=== PATIENT | female | born 1970 | race Caucasian/White ===

== ENCOUNTER 2016-06-24 09:36 | Observation (INO) | payer OTHER ==
[2016-06-20 09:38] VITALS: BMI 47.0
--- NOTE | 2016-06-20 10:03 | PAT Medication Instructions ---
Service Date Jun 20, 2016. Current Home Medication List Atorvastatin (Lipitor), 40 MG PO HS Buspirone Hcl (Buspirone Hcl), 10 MG PO BID Cholecalciferol (Vitamin D3), 2 TAB PO QAM Citalopram Hydrobromide (Celexa), 40 MG PO QPM Clonazepam (Klonopin), 0.5 MG PO QPM Ferrous Sulfate (Iron), 1 DOSE PO QAM Fish Oil ([place]-3), 1 CAP PO QAM Levothyroxine Sodium (Synthroid), 125 MCG PO QAM Melatonin (Melatonin Maximum Strengt), 1 TAB PO HS Meloxicam (Mobic), 15 MG PO HS Medication Instructions For Your Scheduled Surgery - Check with surgeon for instructions: Meloxicam (Mobic), 15 MG PO HS - Hold the following medications starting 06/21/15: Fish Oil ([place]-3), 1 CAP PO QAM - Hold the following medications the morning of surgery: Ferrous Sulfate (Iron), 1 DOSE PO QAM Cholecalciferol (Vitamin D3), 2 TAB PO QAM - Take the following medications the morning of surgery with a sip of water: Levothyroxine Sodium (Synthroid), 125 MCG PO QAM Buspirone Hcl (Buspirone Hcl), 10 MG PO BID - Take the following medications as scheduled the night before surgery: Melatonin (Melatonin Maximum Strengt), 1 TAB PO HS Clonazepam (Klonopin), 0.5 MG PO QPM Citalopram Hydrobromide (Celexa), 40 MG PO QPM Buspirone Hcl (Buspirone Hcl), 10 MG PO BID Atorvastatin (Lipitor), 40 MG PO HS If you have any questions please call us at [phone] Fay Coffman PA-C) or [phone] or [phone]
[2016-06-20 10:33] LABS: BASO % 0.4 %; BASO ABS # 0.02 K/uL (0-0.2); COMPLETE YES; EOS % 2.9 %; HEMATOCRIT 35.8 % (37-47); LYMPH % 32.1 %; LYMPH ABS # 1.44 K/uL (1.2-3.4); MEAN CELL VOLUME 95.7 fL (80-100); MEAN CORPUSCULAR HEMOGLOBIN 32.4 pg (25-34); MEAN CORPUSCULAR HGB CONC 33.8 g/dl (32-36); MEAN PLATELET VOLUME 9.3 fL (7.4-10.4); MONO % 7.3 %; NEUT % 57.3 %; PLATELET COUNT 285 K/uL (130-400); RED BLOOD COUNT 3.74 M/uL (4.2-5.4); WHITE BLOOD COUNT 4.49 K/uL (4.8-10.8)
[2016-06-20 10:54] LABS: BUN/CREATININE RATIO 13.3 (10-20); CALCIUM 8.1 mg/dl (8.5-10.1); CREATININE 0.82 mg/dl (0.60-1.20)
[~2016-06-24] VITALS: Ht 165.1 cm; Wt 129.1 kg
[2016-06-24] VITALS (7 sets, daily range): BP systolic 110–150; BP diastolic 70–85; PULSE 67–77; TEMP 36.8–37.2; O2SAT 91–98; Ht 165.1 cm; Wt 129.1 kg
[~2016-06-24 09:36] MED LIST: BUSP-8 PO; CEFAZOLIN 3000 MG/65 ML D5W 50 ML IV SCH; CHOL1000 PO; CITA40TA12 PO; CLON0.5T3 PO; FERR1TAB23 PO; LACTATED RINGER'S 1000ML 1,000 ML IV SCH; LEVO125T72 PO; LPT/40 PO; MELATAB2 PO; MELO15TA3 PO; OMEG10007 PO
[2016-06-24] MEDS ORDERED: LACTATED RINGER'S 1000ML 1,000 ML IV PRN (11:49)
[2016-06-24] MEDS ORDERED: MoRPHine SULFATE 10 MG/ML CARP/VIAL IV PRN (12:00)
[2016-06-24] MEDS ORDERED: FENTANYL CITRATE INJ 50 MCG/1 ML 2 ML VIAL IV PRN (12:00)
[2016-06-24] MEDS ORDERED: MIDAZOLAM HCL 1 MG/ML 2ML VIAL ONE (12:09)
[2016-06-24] MEDS ORDERED: FENTANYL CITRATE INJ 50 MCG/1 ML 2 ML VIAL ONE ×3 (12:09→14:26)
--- NOTE | 2016-06-24 12:18 | History & Physical Bridge Note ---
H&P Re-Evaluation Bridge Note: I have examined the patient, reviewed the History & Physical and in the interval since the performance of the History & Physical I have noted the following changes of clinical significance: No changes noted
[2016-06-24] MEDS ORDERED: ONDANSETRON INJ 2 MG/ML 2 ML VIAL ONE (13:22)
[2016-06-24] MEDS ORDERED: LIDOCAINE 2% 20 MG/ML 5ML SYR ONE (13:22)
[2016-06-24] MEDS ORDERED: LIDOCAINE HCL 2% 2 ML VIAL (20MG/ML) ONE (13:22)
[2016-06-24] MEDS ORDERED: ROCURONIUM BROMIDE 10 MG/ML 5 ML VIAL ONE (13:22)
[2016-06-24] MEDS ORDERED: PROPOFOL IV EMULSION 10 MG/ML 20 ML VIAL IV ONE (13:22)
[2016-06-24] MEDS ORDERED: DEXAMETHASONE SOD INJ 4 MG/ML VIAL ONE (13:22)
[2016-06-24] MEDS ORDERED: KETOROLAC TROMETHAMINE 30 MG/ML VIAL ONE (14:22)
[2016-06-24] MEDS ORDERED: BUPIVACAINE 0.5 % 5 MG/1 ML MPF 30ML VIAL INJ ONE (14:32)
[2016-06-24] MEDS ORDERED: LACTATED RINGER'S 1000ML 1,000 ML IV SCH (14:50)
--- NOTE | 2016-06-24 14:50 | [facility] Post Operative Brief Note ---
Immediate Operative Summary Operative Date Jun 24, 2016. Pre-Operative Diagnosis Abnormal uterine bleeding, anemia, obesity Post-Operative Diagnosis Same as preop. Procedure(s) Performed Total Laparoscopic Hysterectomy, Bilateral salpingectomies with use of Davinci, cystoscopy Surgeon Dr. Burgos [employer] Consultant Surgeon(s) None Estimated Blood Loss 50 ML Findings bulky uterus. nl ovaries bilaterally. evidence of hulka clips to bilateral fallopian tubes, 2 devices on each side. Mobile pelvic organs. redundant fat in pelvis. nl liver edge. Fluids (cc crystalloids) 1700 Specimens A: Uterus, cervix, bilateral tubes Drains gaitan Anesthesia general Complication(s) None Disposition Recovery Room / PACU
[2016-06-24] MEDS ORDERED: OXYC-57 PO (14:54)
[2016-06-24] MEDS ORDERED: MTR600X PO (14:54)
--- NOTE | 2016-06-24 14:55 | Discharge Instructions ---
Discharge Instructions Admission Reason for Admission: AUB Discharge Discharge Diagnosis / Problem: status post surgery Discharge Goals Goal(s): Routine recovery after surgery Activity Recommendations Activity Limitations: as noted below . Instructions / Follow-Up Instructions / Follow-Up POST OPERATIVE: BOWEL FUNCTION/MEDICATIONS: 1. Constipation pain and discomfort are the most common complaints 5-7 days after surgery. Points 2-6 address the things that can help. 2. Chewing gum can help stimulate the gut and help improve digestion and motility. 3. Milk of Magnesia 1-2 times per day until return of bowel function. 4. Colace is a stool softener that helps. Taking this 2-3 times per day until bowel function returns to normal is highly recommended. 5. Dulcolax is a laxative that may be used if several days have passed without a bowel movement. Alternatively Miralax may be used daily instead. 6. Drink plenty of fluids as this will also reduce constipation. 7. Narcotic pain medications will be prescribed by your physician. They are safe to use and we encourage you to use them. If you are not allergic, ibuprofen will also be prescribed. Many patients will be able to transition off of the narcotic medications to ibuprofen by postoperative day 3. ACTIVITY RECOMMENDATIONS: 1. Get plenty of rest and listen to your body. If you are tired, take a nap. 2. You may shower, but do not take a tub bath until you see your doctor at the 2 week post operative visit. 3. Absolutely NO intercourse and nothing in the vagina until you are examined by your doctor at the 8 week visit. At that visit it will be determined when such activities can be resumed. This can range from 6-12 weeks after your surgery depending on healing time. 4. The main physical activity in the first week should be walking. By the second week you can slowly increase activity. There are no limits on walking up and down stairs. 5. Do not lift more than 5-10 lbs for 4 weeks. Remember the "one-handed rule", i.e. if you can lift something with only one hand it's likely okay. 6. Minimize paying teller like vacuuming and exercising for 4 weeks. "Overdoing it" can lead to incisions not healing, pain and vaginal bleeding , so again, listen to your body. 7. Driving can be resumed when you feel able. Do not drive within 24 hours of taking a narcotic medication. EXPECTATIONS: 1. Vaginal spotting, bleeding and discharge are common after surgery. There may even be an odor to the discharge which is often related to sutures used in the vagina. If you experience heavy vaginal bleeding, call the office number day or night [phone]. 2. Bladder discomfort is common after surgery from the catheter. This usually resolves in 1-2 weeks. 3. By the end of the 3rd or 4th week you should be feeling much better. It may take up to 6 weeks for your energy levels to return to normal. 4. Narcotic medications have side effects such as: dizziness, headache, nausea and/or vomiting. If you suspect your pain medication is causing problems, call our office and we may be able to prescribe an alternate medication. 5. The skin incisions are often covered with a liquid bandage. This will gradually peel off over time. CALL THE OFFICE IF YOU HAVE ANY OF THE FOLLOWIN. Temperature of 101 degrees or higher. 2. Severe abdominal or pelvic pain not relieved by pain medication. 3. Persistent nausea or vomiting. 4. Increased pain with urination or difficulty urinating. 5. Bright red bleeding that soaks more than 1 pad per hour. CONTACT PHONE NUMBERS: Main Office: [phone] Surgical Nurse: [phone] extension [phone] FOLLOW-UP: Post-Operative Appointments: * Individual instructions will have been given about the timing of your first examination, but this is usually at the end of the second week home. * You will need to call the office at soon after discharge to make the appointment for your post-op check-up if it has not already been scheduled. * Additional information regarding activity, sexual intercourse and when to return to work will be given at this appointment. WE WISH YOU A SPEEDY RECOVERY! Current Hospital Diet Patient's current hospital diet: Discharge Diet Recommended Diet: Regular Diet Procedures Procedures Performed: Total Laparoscopic Hysterectomy, Bilateral salpingectomies with use of Davinci, cystoscopy Pending Studies Studies pending at discharge: yes List of pending studies: pathology Medical Emergencies . Who to Call and When: Medical Emergencies: If at any time you feel your situation is an emergency, please call 911 immediately. . Non-Emergent Contact Non-Emergency issues call your: Primary Care Provider, School Clerk Call Non-Emergent contact if: you have a fever, your pain is worsening, your pain is concerning you, wound has increased drainage, wound has increased redness, wound has increased pain . . "Provider Documentation" section prepared by Marika Burgos. VTE Core Measure Inpt VTE Proph given/why not?: Treatment not indicated
[2016-06-24] MEDS ORDERED: ZOLPIDEM TARTRATE 5 MG TAB PO PRN (15:00)
[2016-06-24] MEDS ORDERED: KETOROLAC TROMETHAMINE 30 MG/ML VIAL IV. PRN (15:00)
[2016-06-24] MEDS ORDERED: ONDANSETRON INJ 2 MG/ML 2 ML VIAL IV PRN (15:00)
[2016-06-24] MEDS ORDERED: SIMETHICONE 80 MG CHEW PO PRN (15:00)
[2016-06-24] MEDS ORDERED: ACETAMINOPHEN 325 MG TAB PO PRN (15:00)
[2016-06-24] MEDS ORDERED: OXYCODONE/ACETAMINOPHEN 5-325 TAB PO PRN ×2 (15:00)
--- NOTE | 2016-06-24 15:36 | Anesthesiology Progress Note ---
Anesthesia Post Op Note Date & Time Jun 24, 2016 at 15:35 Vital Signs Pain Intensity: 0 Vital Signs Past 12 Hours Date Time Temp Pulse Resp B/P Pulse Ox O2 Delivery O2 Flow Rate FiO2 06/24/16 15:25 36.9 71 19 113/77 94 Nasal Cannula 2 06/24/16 15:15 68 18 137/81 93 Nasal Cannula 2 06/24/16 15:05 75 17 131/76 99 Mask 10 06/24/16 14:55 84 16 156/84 98 Mask 10 06/24/16 14:45 37.0 101 12 143/87 98 Mask 10 Notes Mental Status: alert / awake / arousable, participated in evaluation Pt Amnestic to Procedure: Yes Nausea / Vomiting: adequately controlled Pain: adequately controlled Airway Patency, RR, SpO2: stable & adequate BP & HR: stable & adequate Hydration State: stable & adequate Anesthetic Complications: no major complications apparent
[2016-06-24] MEDS ORDERED: IV FLUIDS COMPLETED PRN (16:45)
--- NOTE | 2016-06-24 18:22 | OPERATIVE REPORT ---
DATE OF OPERATION: 06/24/2016 PREOPERATIVE DIAGNOSES: 1. Abnormal uterine bleeding. 2. Anemia. 3. Obesity. 4. Failed ablation. POSTOPERATIVE DIAGNOSES: Same. PROCEDURES: 1. Total laparoscopic hysterectomy. 2. Bilateral salpingectomies. 3. Cystoscopy. 4. Robotic assistance. SURGEON: Dr. Marika Burgos. AIR TABLE OPERATOR: RN. IV FLUIDS: 1700 mL. ESTIMATED BLOOD LOSS: 50 mL. ANESTHESIA: General. INDICATIONS: A 46-year-old 3, para 2 with a history of abnormal uterine bleeding with failed ablation and a history of anemia and obesity; desiring definitive surgical management. The patient underwent an endometrial ablation elsewhere earlier in the year, but after initial decrease in flow ended up having heavy frequent vaginal bleeding to include q. 2-week bleeding. She had a tubal in the past so has completed child bearing. She wants definitive surgical therapy. FINDINGS: Uterus globally bulky. Normal ovaries and fallopian tubes bilaterally. Fallopian tubes with Hulka clips on each side x2. Normal liver edge. Overlying fatty tissue exposed and redundant. DESCRIPTION OF PROCEDURE: The patient was taken to the operating room and identified. After adequate general anesthesia was obtained, she was placed in the dorsal lithotomy position and prepped and draped in the usual sterile fashion. A Webster catheter was placed in the bladder and the cervix was visualized with retractors. It was grasped in its anterior lip with an Allis clamp. A single interrupted suture of 0 Vicryl was placed at 3 o'clock position. It was sequentially dilated and sounded and the VCare uterine manipulator device was gently placed through the cervical os into the uterine cavity and the balloon was inflated. The suture material was used to tie down the initial cup and then stabilizing cup was prepared. All the vaginal retractors were removed. Attention was then turned to patient's abdomen, where an infraumbilical skin incision was made with a scalpel. The Veress needle was placed intraperitoneally with an opening pressure of 4 mmHg. A CO2 pneumoperitoneum was created. The 12-mm optical trocar was then placed under direct visualization into the peritoneal cavity. The pelvis and abdomen were inspected with the findings as noted above. The da Cassandra trocar sites were created left and right of the midline by first creating skin incisions and then placing under direct visualization da Cassandra trocars. A patient assist port was also created in the left upper quadrant by first making an incision and then placing under direct visualization a 10-mm trocar. The patient had been placed in steep Trendelenburg as noted and any possible retraction away of the bowel was undertaken. Both left and right ovaries were completely mobile. The patient underwent retention of her ovaries as they did not look abnormal and that was her desire. The laparoscope was removed and the da Cassandra robot was brought to patient's bedside. The appropriate instrument arms were connected to the appropriate trocars. The camera was introduced. The monopolar jose martin and the fenestrated bipolar were brought into the abdomen under direct visualization. Using these instruments, the uterine-ovarian round ligament, fallopian tube complex was coagulated and transected on the right side. The broad ligament attachments were opened up into sharply and the bladder flap was begun sharply from the right side towards the midline. The bladder was pushed well away from the planned operative field. With pressure on the VCare cup, the uterine artery was skeletonized and coagulated on the right side. At this point, attention was turned to the left uterine-ovarian round ligament, fallopian tube complex that was also coagulated and transected in a similar fashion. The broad ligament attachments were opened up to on the left side and the bladder flap was continued from the left meeting in the midline from the right. The broad ligament attachments were further dissected to skeletonize the uterine arteries with pressure on the VCare cup. At this point, the uterine artery pedicles were coagulated and transected from the left side. The cardinal ligament attachments were further taken down with sequential cautery and transection using the monopolar jose martin. The bladder was cleared well away from the planned colpotomy site anteriorly. Attention was turned to the right uterine artery pedicle, which was also then cauterized and transected sequentially and the cardinal ligament attachments were further taken down. Once the area of the planned colpotomy site was completely cleared, the colpotomy took place. The tissue was rather thick. The specimen was completely transected from the upper vagina. It was brought out vaginally. There were multiple pumpers from the cuff area that had to be elevated and coagulated. This was successful with adequate hemostasis. At this point, a large needle funeral limousine driver was brought through instrument arm #1 and the 2-0 V-Loc 90 suture was brought into the abdomen. The cuff was then closed in the usual fashion using the suture material. This suture material was then elevated and cut and the needle was brought out. The CO2 gas was maintained for that period of time using a sponge in the vagina and that was removed and there was no evidence of any air leak. At this point the salpingectomies took place. The specimens were taken out through the patient assist port with care. The pelvis was irrigated and there was no evidence of any bleeding. IV methylene blue had been given. Cystoscopy took place with the findings of normal bladder filling with normal bilateral ureteral jets. A new Webster catheter was placed. Attention was then returned to patient's abdomen, where the CO2 gas was allowed to escape from the abdomen. The da Cassandra robot had been brought away from patient's bedside. The trocars were then removed. The larger incisions had subcutaneous stitching of 0 Vicryl followed by all incisions being stitched in a subcuticular fashion using 4-0 Vicryl. They were injected with Marcaine and dressed with Dermabond. The patient was returned to the supine position. She was awoken from anesthesia and transferred to the recovery room in stable condition. All sponge, lap and needle counts were correct x2. I attest to the content of the Intraoperative Record and any orders documented therein. Any exceptions are noted below. MTDD
[2016-06-24] MEDS: DOCUSATE SODIUM 100 MG CAP PO SCH (20:34)
[2016-06-24] MEDS: IBUPROFEN 600 MG TAB PO PRN (23:54)
[2016-06-25 04:40] VITALS: BP 101/67; PULSE 71; TEMP 36.8; O2SAT 93
[2016-06-25 06:56] LABS: HEMATOCRIT 33.1 % (37-47); MEAN CELL VOLUME 94.8 fL (80-100); MEAN CORPUSCULAR HEMOGLOBIN 32.1 pg (25-34); MEAN CORPUSCULAR HGB CONC 33.8 g/dl (32-36); RED BLOOD COUNT 3.49 M/uL (4.2-5.4); WHITE BLOOD COUNT 11.25 K/uL (4.8-10.8)
[2016-06-25 06:57] LABS: BASO % 0.1 %; BASO ABS # 0.01 K/uL (0-0.2); COMPLETE YES; IG% 0.2 %; LYMPH % 11.3 %; LYMPH ABS # 1.27 K/uL (1.2-3.4); MEAN PLATELET VOLUME 9.2 fL (7.4-10.4); MONO % 5.5 %; NEUT % 82.9 %; PLATELET COUNT 289 K/uL (130-400)
[2016-06-25 07:30] VITALS: BP 110/72; PULSE 60; TEMP 36.8; O2SAT 95
[2016-06-25] MEDS: IBUPROFEN 600 MG TAB PO PRN (08:19)
[2016-06-25] MEDS: DOCUSATE SODIUM 100 MG CAP PO SCH (08:19)
--- NOTE | 2016-06-25 09:09 | Progress Note ---
Progress Note s/ pt doing well. has some bruising on incision site on left but feels well. she is eating, voiding and ambulating without problem. on oral pain meds. o/ af vss abd soft obese nt, incisions c/d/i with bruising. ext nt calves a/ pod #1 s/p TLH, bilateral salpingectomies p/ ok for d/c. instructions reviewed. oral pain meds. f/u 2wks.
[2016-06-25 09:47] VITALS: BP 110/72; PULSE 60; TEMP 36.8; O2SAT 95
--- NOTE | 2016-06-26 11:02 | DISCHARGE SUMMARY ---
ADMISSION DIAGNOSES: 1. Abnormal uterine bleeding. 2. Anemia. 3. Obesity. 4. Failed ablation. DISCHARGE DIAGNOSES: Same. PROCEDURES: 1. Total laparoscopic hysterectomy. 2. Bilateral salpingectomies. 3. Cystoscopy. 4. Robotic assistance. BRIEF HISTORY AND HOSPITAL COURSE: A 46-year-old 3, para 2 with a history of abnormal uterine bleeding with failed ablation and a history of anemia and obesity. She desired definitive surgical management. Her ablation took place earlier this year and ultimately was unsuccessful. She has completed her childbearing as she had a tubal ligation a while ago. She wanted definitive surgical therapy. She underwent the above-stated procedures without incident. Her estimated blood loss was 50 mL. On her postop day #1, she was tolerating a regular diet, voiding spontaneously without difficulty and ambulating without difficulty and was stable for discharge to home. She had a postop hemoglobin of 11.2. She was given appropriate discharge instructions with outlined limitations on her activity and instructed her to follow up in 2 weeks' time for her checkup. She was given appropriate pain medication prescriptions. BHARTI
== END 2016-06-25 10:29 | disposition home or self-care (01) ==
LOC: ENRESERVTM → ENRESERVDT → C.ACU 09:36 → C.MS4N 14:52
PROVIDERS: ADMIT Obstetrics & Gynecology; ATTEND Obstetrics & Gynecology
DX: N93.9 Abnormal uterine and vaginal bleeding, unspecified (principal); D64.9 Anemia, unspecified; E03.9 Hypothyroidism, unspecified; E66.9 Obesity, unspecified; F17.200 Nicotine dependence, unspecified, uncomplicated; Z83.3 Family history of diabetes mellitus; Z82.0 Family history of epilepsy and other diseases of the nervous system; Z80.3 Family history of malignant neoplasm of breast
CPT/HCPCS: 58571; S2900

== ENCOUNTER → 2017-08-29 | Outpatient (CLI) | payer OTHER ==
[~2017-08-29] MED LIST changes: -CEFAZOLIN 3000 MG/65 ML D5W 50 ML IV SCH; -LACTATED RINGER'S 1000ML 1,000 ML IV SCH; +MTR600X PO
[2017-08-29 18:45] LABS: BASO % 0.2 %; BASO ABS # 0.02 K/uL (0-0.2); EOS % 1.3 %; EOS ABS # 0.11 K/uL (0-0.5); HEMATOCRIT 37.3 % (37-47); HEMOGLOBIN 12.1 g/dL (12.0-16.0); IG# 0.01 K/uL (0.00-0.02); LYMPH % 16.6 %; LYMPH ABS # 1.41 K/uL (1.2-3.4); MEAN CELL VOLUME 97.9 fL (80-100); MEAN CORPUSCULAR HEMOGLOBIN 31.8 pg (25-34); MEAN CORPUSCULAR HGB CONC 32.4 g/dl (32-36); MEAN PLATELET VOLUME 9.6 fL (7.4-10.4); MONO % 5.9 %; NEUT % 75.9 %; NEUT ABS # 6.43 K/uL (1.4-6.5); PLATELET COUNT 347 K/uL (130-400); RED CELL DISTRIBUTION WIDTH CV 12.5 % (11.5-14.5); RED CELL DISTRIBUTION WIDTH SD 44.6 fL (36.4-46.3); WHITE BLOOD COUNT 8.48 K/uL (4.8-10.8)
[2017-08-29 19:05] LABS: ALBUMIN 3.5 gm/dl (3.4-5.0); ALT/SGPT 35 U/L (12-78); AST/SGOT 22 U/L (15-37); BLOOD UREA NITROGEN 10 mg/dl (7-18); CALCIUM 8.7 mg/dl (8.5-10.1); CARBON DIOXIDE 25 mmol/L (21-32); CREATININE 0.73 mg/dl (0.60-1.20); GLUCOSE 113 mg/dl (70-99); SODIUM 137 mmol/L (136-145)
[2017-08-29 19:07] LABS: ALKALINE PHOSPHATASE 101 U/L (45-117); CHOLESTEROL 136 mg/dl (0-200); LDL CHOLESTEROL CALCULATED 59 mg/dl; TOTAL PROTEIN 7.6 gm/dl (6.4-8.2)
== END | disposition home or self-care (01) ==
LOC: C.LABMFLN 11:23
PROVIDERS: ATTEND Family Medicine
DX: E78.5 Hyperlipidemia, unspecified (principal); L03.90 Cellulitis, unspecified

== ENCOUNTER → 2017-09-01 | Outpatient (CLI) | payer OTHER ==
[2017-09-01 17:37] LABS: BASO % 0.4 %; BASO ABS # 0.03 K/uL (0-0.2); EOS % 1.9 %; EOS ABS # 0.14 K/uL (0-0.5); HEMATOCRIT 39.7 % (37-47); HEMOGLOBIN 12.9 g/dL (12.0-16.0); IG# 0.01 K/uL (0.00-0.02); LYMPH ABS # 1.55 K/uL (1.2-3.4); MEAN CELL VOLUME 97.8 fL (80-100); MEAN CORPUSCULAR HEMOGLOBIN 31.8 pg (25-34); MEAN CORPUSCULAR HGB CONC 32.5 g/dl (32-36); MEAN PLATELET VOLUME 9.6 fL (7.4-10.4); MONO % 3.7 %; MONO ABS # 0.27 K/uL (0.11-0.59); NEUT % 72.9 %; NEUT ABS # 5.39 K/uL (1.4-6.5); PLATELET COUNT 388 K/uL (130-400); RED CELL DISTRIBUTION WIDTH CV 12.5 % (11.5-14.5); RED CELL DISTRIBUTION WIDTH SD 44.5 fL (36.4-46.3); WHITE BLOOD COUNT 7.39 K/uL (4.8-10.8)
== END | disposition home or self-care (01) ==
LOC: C.LABMFLN 12:57
PROVIDERS: ATTEND Family Medicine
DX: L03.90 Cellulitis, unspecified (principal)

== ENCOUNTER → 2017-09-26 | Outpatient (CLI) | payer OTHER ==
[2017-09-26 17:50] LABS: BASO % 0.2 %; BASO ABS # 0.01 K/uL (0-0.2); EOS % 1.8 %; EOS ABS # 0.11 K/uL (0-0.5); HEMATOCRIT 38.5 % (37-47); IG# 0.01 K/uL (0.00-0.02); LYMPH % 28.3 %; LYMPH ABS # 1.77 K/uL (1.2-3.4); MEAN CELL VOLUME 95.5 fL (80-100); MEAN CORPUSCULAR HEMOGLOBIN 32.3 pg (25-34); MEAN CORPUSCULAR HGB CONC 33.8 g/dl (32-36); MEAN PLATELET VOLUME 9.3 fL (7.4-10.4); MONO % 5.9 %; MONO ABS # 0.37 K/uL (0.11-0.59); NEUT % 63.6 %; NEUT ABS # 3.99 K/uL (1.4-6.5); PLATELET COUNT 396 K/uL (130-400); RED CELL DISTRIBUTION WIDTH CV 12.6 % (11.5-14.5); WHITE BLOOD COUNT 6.26 K/uL (4.8-10.8)
== END | disposition home or self-care (01) ==
LOC: C.LABMFLN 14:38
PROVIDERS: ATTEND Family Medicine
DX: M25.551 Pain in right hip (principal)

== ENCOUNTER → 2017-10-26 | Outpatient (CLI) | payer OTHER | END | disposition home or self-care (01) | LOC: C.LABMFLN 15:11 | PROVIDERS: ATTEND Internal Medicine Endocrinology, Diabetes & Metabolism | DX: E03.9 Hypothyroidism, unspecified (principal); E34.9 Endocrine disorder, unspecified ==